=== PATIENT | male | born 1995 | race African-American/Black ===

== ENCOUNTER 2019-03-11 19:32 | Emergency (ER) | payer MEDICAID ==
[~2019-03-11] VITALS: Ht 182.9 cm; Wt 73.0 kg
[2019-03-11 21:30] VITALS: BP 137/76
== END 2019-03-11 21:31 | disposition left against medical advice (07) ==
LOC: ER 19:32
DX: S50.01XA Contusion of right elbow, initial encounter (principal); W18.39XA Other fall on same level, initial encounter; Y93.39 Activity, other involving climbing, rappelling and jumping off; Y92.89 Other specified places as the place of occurrence of the external cause; F12.90 Cannabis use, unspecified, uncomplicated
CPT/HCPCS: 99281